=== PATIENT | female | born 1990 | race Caucasian/White ===

== ENCOUNTER 2018-01-23 07:37 | Outpatient (CLI) | payer OTHER | END 2018-01-23 07:43 | disposition home or self-care (01) | LOC: SONOGRAMA 07:37 | DX: N60.19 Diffuse cystic mastopathy of unspecified breast (principal) ==

== ENCOUNTER 2021-09-02 10:03 | Emergency (ER) | payer OTHER ==
[~2021-09-02] VITALS: Ht 180.3 cm; Wt 65.8 kg
[2021-09-02] MEDS ORDERED: ORPHENADRINE C100 MG PO (14:33)
[2021-09-02] MEDS ORDERED: CELEBREX100 MG PO (14:33)
== END 2021-09-02 15:00 ==
LOC: ER 10:03
DX: S01.01XA Laceration without foreign body of scalp, initial encounter (principal); W18.39XA Other fall on same level, initial encounter; Y93.89 Activity, other specified; Y92.090 Kitchen in other non-institutional residence as the place of occurrence of the external cause; Y99.8 Other external cause status; R55 Syncope and collapse

== ENCOUNTER 2021-09-08 08:45 | Emergency (ER) | payer OTHER ==
[~2021-09-08] VITALS: Ht 180.3 cm; Wt 67.1 kg
[~2021-09-08 08:45] MED LIST: CELEBREX100 MG PO; ORPHENADRINE C100 MG PO
== END 2021-09-08 14:09 | disposition home or self-care (01) ==
LOC: ER 08:45
DX: R42 Dizziness and giddiness (principal)

== ENCOUNTER 2021-09-13 13:42 | Outpatient (CLI) | payer OTHER | END 2021-09-13 13:54 | disposition home or self-care (01) | LOC: MRI 13:42 | PROVIDERS: ATTEND Emergency Medicine | DX: G93.89 Other specified disorders of brain (principal); R42 Dizziness and giddiness | CPT/HCPCS: 70551 ==

== ENCOUNTER 2021-12-09 12:22 | Outpatient (CLI) | payer OTHER | END 2021-12-09 12:32 | disposition home or self-care (01) | LOC: SONOGRAMA 12:22 | PROVIDERS: ATTEND Specialist | DX: N60.11 Diffuse cystic mastopathy of right breast (principal); N64.59 Other signs and symptoms in breast; N64.4 Mastodynia ==

== ENCOUNTER 2023-06-19 07:59 | Outpatient (CLI) | payer OTHER | END 2023-06-19 13:08 | disposition home or self-care (01) | LOC: SONOGRAMA 07:59 | DX: N18.2 Chronic kidney disease, stage 2 (mild) (principal) ==